=== PATIENT | male | born 1940 | race Asian ===

== ENCOUNTER 2016-11-23 07:51 | Emergency (ER) | payer MEDICARE, BC ==
[~2016-11-23] VITALS: Ht 157.5 cm; Wt 61.2 kg
[2016-11-23 08:15] VITALS: BP 129/63
[2016-11-23] MEDS ORDERED: Dicyclomine HCl 10mg/5ml oral soln ORAL ONE ×2 (08:15→09:30)
[2016-11-23] MEDS ORDERED: Morphine Sulfate 4mg/ml Inj IVP ONE (08:15)
[2016-11-23] MEDS ORDERED: Lidocaine 2% Visc 15ml soln ORAL ONE ×2 (08:15→09:30)
[2016-11-23] MEDS ORDERED: Mylanta II UD 30ml ORAL ONE ×2 (08:15→09:30)
--- NOTE | 2016-11-23 08:19 | Emergency Room Report ---
History of Present Illness General Chief Complaint: Abdominal Pain Source: Patient Present Illness HPI 76-year-old male with hyperlipidemia p/w abdominal pain 3-4 hours. Patient states pain started for he drink his medicine, localized to epigastric area, non radiating, burning in nature, intermittent. No relieving or exacerbating factors. Severity is 8/10. Denies nvd. Denies fever, chills. Denies chest pain or shortness of breath No hx of abdominal surgeries. No hx of endoscopies/colonoscopies. Patient states that he went to the emergency room at [facility] last week for right lower cautioned abdominal pain, was found to have a right-sided kidney stone which had passed, patient states that this pain is very different from his kidney stone pain Allergies: Coded Allergies: No Known Allergies (Unverified , 11/23/16) Patient History Past Medical History: see triage record Past Surgical History: none Pertinent Family History: none Reviewed Nursing Documentation: PMH: Agreed, PSxH: Agreed Nursing Documentation-PMH Past Medical History: No History, Except For Review of Systems All Other Systems: negative except mentioned in HPI Physical Exam Vital Signs Date Time Temp Pulse Resp B/P (MAP) Pulse Ox O2 Delivery O2 Flow Rate FiO2 11/23/16 07:54 97.7 72 20 133/74 97 Room Air Sp02 EP Interpretation: reviewed, normal General Appearance: alert, GCS 15, non-toxic, moderate distress Head: normocephalic, atraumatic Eyes: bilateral eye normal inspection, bilateral eye PERRL, bilateral eye EOMI ENT: normal ENT inspection, normal pharynx, normal voice, moist mucus membranes Neck: normal inspection, full range of motion, supple Respiratory: normal inspection, lungs clear, normal breath sounds, no respiratory distress, no retraction, no wheezing, speaking full sentences, chest symmetrical Cardiovascular #1: normal inspection, regular rate, rhythm, no edema, normal capillary refill Cardiovascular #2: 2+ radial (R), 2+ radial (L) Gastrointestinal: soft, non-distended, no guarding, other - Epigastric tenderness, Hewitt sign negative, all other quadrants nontender to palpation Genitourinary: no CVA tenderness Musculoskeletal: normal inspection, back normal, normal range of motion, non- tender Neurologic: normal inspection, alert, oriented x3, responsive, motor strength/ tone normal, sensory intact, normal gait, speech normal Psychiatric: normal inspection, judgement/insight normal, memory normal Skin: normal inspection, normal color, no rash, warm/dry, well hydrated, normal turgor Medical Decision Making Diagnostic Impression: Primary Impression: Epigastric abdominal pain ER Course 76-year-old male with abdominal pain for one day Differential Diagnosis: Gastritis, gastroenteritis, cholecystitis, appendicitis, diverticulitis, SBO, mesenteric ischemia, cardiac, UTI/pyelo At this time abdomen is soft nontender with the exception of epigastrium, will hold CT for now. Plan: Basic labs, ua, ekg Pepcid, maalox, pain control, IVF ER course: EKG revealing ST elevation inferior leads, reciprocal depressions in 1 aVL, mild ST depression in V5. Aspirin 325 given Heparin bolus, morphine Contacted [facility] 8:20am for STEMI Discussion held with [facility] plans examiner, does not believe it to be STEMI retreieved old EKG from [facility] from Oct 2016, SAME morphology without changes. Patient is also feeling much better with meds repeat abd exam is soft, no rigidity repeat trop negative pt continues to feel better in ed Disposition: Patient was discharged to home. He was instructed to follow up with gastroenterology in one week. A prescription of Pepcid was given to patient. Patient cautioned to return to the emergency room if he is experiencing severe worsening pain, intractable nausea vomiting, chest pain or shortness of breath Please note that this Emergency Department Report was dictated using [employer] technology software, occasionally this can lead to erroneous entry secondary to interpretation by the dictation equipment Laboratory Tests Test 11/23/16 08:15 11/23/16 11:25 White Blood Count 15.1 K/UL (4.8-10.8) H Red Blood Count 4.83 M/UL (4.70-6.10) Hemoglobin 15.4 G/DL (14.2-18.0) Hematocrit 45.3 % (42.0-52.0) Mean Corpuscular Volume 94 FL (80-99) Mean Corpuscular Hemoglobin 31.8 PG (27.0-31.0) H Mean Corpuscular Hemoglobin Concent 33.9 G/DL (32.0-36.0) Red Cell Distribution Width 10.8 % (11.6-14.8) L Platelet Count 206 K/UL (150-450) Mean Platelet Volume 6.4 FL (6.5-10.1) L Neutrophils (%) (Auto) 84.4 % (45.0-75.0) H Lymphocytes (%) (Auto) 8.7 % (20.0-45.0) L Monocytes (%) (Auto) 6.7 % (1.0-10.0) Eosinophils (%) (Auto) 0.0 % (0.0-3.0) Basophils (%) (Auto) 0.3 % (0.0-2.0) Prothrombin Time 10.1 SEC (9.30-11.50) Prothrombin Time INR 1.0 (0.9-1.1) PTT 25 SEC (23-33) Sodium Level 133 MMOL/L (136-145) L Potassium Level 4.0 MMOL/L (3.5-5.1) Chloride Level 98 MMOL/L (98-107) Carbon Dioxide Level 27 MMOL/L (21-32) Anion Gap 8 (5-15) Blood Urea Nitrogen 16 mg/dL (7-18) Creatinine 1.2 MG/DL (0.55-1.30) Estimate Glomerular Filtration Rate mL/min (>60) Glucose Level 149 MG/DL (74-106) H Calcium Level 8.7 MG/DL (8.5-10.1) Total Bilirubin 1.7 MG/DL (0.2-1.0) H Direct Bilirubin 0.6 MG/DL (0.0-0.3) H Aspartate Amino Transferase (AST) 189 U/L (15-37) H Alanine Aminotransferase (ALT) 87 U/L (12-78) H Alkaline Phosphatase 72 U/L (46-116) Total Creatine Kinase 92 U/L (26-308) Creatine Kinase MB < 0.5 NG/ML (0.0-3.6) Creatine Kinase MB Relative Index Troponin I 0.018 ng/mL (0.000-0.056) 0.011 ng/mL (0.000-0.056) Pro-B-Type Natriuretic Peptide 284 (0-125) H Total Protein 7.2 G/DL (6.4-8.2) Albumin 3.5 G/DL (3.4-5.0) Globulin 3.7 g/dL Albumin/Globulin Ratio 0.9 (1.0-2.7) L Lipase 83 U/L (73-393) EKG Diagnostic Results Rate: normal Rhythm: NSR ST Segments: other - RBBB, VANESSA inferior leads, ST depression I and aVL, Q wave lead III Rhythm Strip Diag. Results EP Interpretation: yes Rate: 71 Rhythm: NSR, no PVC's, no ectopy Last Vital Signs Date Time Temp Pulse Resp B/P (MAP) Pulse Ox O2 Delivery O2 Flow Rate FiO2 11/23/16 07:54 97.7 72 20 133/74 97 Room Air Disposition: HOME, SELF-CARE Condition: Improved Scripts Famotidine (PEPCID) 40 Mg Tablet 40 MG PO DAILY for 7 Days, #7 TAB 0 Refills Prov: Martha Rodgers M.D. 11/23/16 Martha Rodgers M.D. Nov 23, 2016 08:19
[2016-11-23] MEDS ORDERED: Heparin 5000 units/ml inj IV ONE (08:30)
[2016-11-23 08:45] LABS: BASOPHILS % (AUTO) 0.3 % (0.0-2.0); LYMPHOCYTES % (AUTO) 8.7 % (20.0-45.0); MEAN CORPUSCULAR HEMOGLOBIN 31.8 PG (27.0-31.0); MEAN CORPUSCULAR HGB CONC 33.9 G/DL (32.0-36.0); MEAN CORPUSCULAR VOLUME 94 FL (80-99); MEAN PLATELET VOLUME 6.4 FL (6.5-10.1); MONOCYTES % (AUTO) 6.7 % (1.0-10.0); NEUTROPHILS % (AUTO) 84.4 % (45.0-75.0); PLATELET COUNT 206 K/UL (150-450); RED BLOOD COUNT 4.83 M/UL (4.70-6.10); RED CELL DISTRIBUTION WIDTH 10.8 % (11.6-14.8); WHITE BLOOD COUNT 15.1 K/UL (4.8-10.8)
[2016-11-23] MEDS ORDERED: DOXAZOSIN MESYLA4 MG ORAL (08:45)
[2016-11-23] MEDS ORDERED: PROSCAR5 MG ORAL (08:45)
[2016-11-23] MEDS ORDERED: SIMVASTATIN10 MG ORAL (08:45)
[2016-11-23 08:46] VITALS: BP 123/59
[2016-11-23 08:56] LABS: ALANINE AMINOTRANSFERASE 87 U/L (12-78); ALBUMIN/GLOBULIN RATIO 0.9 (1.0-2.7); ANION GAP 8 (5-15); ASPARTATE AMINO TRANSFERASE 189 U/L (15-37); CALCIUM 8.7 MG/DL (8.5-10.1); CARBON DIOXIDE 27 MMOL/L (21-32); CHLORIDE 98 MMOL/L (98-107); CREATININE 1.2 MG/DL (0.55-1.30); LIPASE 83 U/L (73-393); SODIUM 133 MMOL/L (136-145); TOTAL PROTEIN 7.2 G/DL (6.4-8.2)
[2016-11-23 09:04] LABS: CKMB < 0.5 NG/ML (0.0-3.6)
[2016-11-23 09:07] LABS: PROTHROMBIN TIME 10.1 SEC (9.30-11.50)
[2016-11-23 09:44] LABS: BILIRUBIN,DIRECT 0.6 MG/DL (0.0-0.3)
[2016-11-23 10:23] VITALS: BP 115/59
[2016-11-23 11:16] VITALS: BP 110/54
[2016-11-23] MEDS ORDERED: PEPCID40 MG PO (11:19)
--- NOTE | 2016-11-23 12:01 | Diagnostic Imaging Report ---
Indication: PAIN, left-sided Chest pain Technique: One view of the chest Comparison: none Findings: There is some atelectasis at the right lung base and right perihilar region. The lungs and pleural spaces otherwise clear. Heart size is normal. Aorta is tortuous. Impression: Right basilar atelectasis No acute process otherwise
[2016-11-23 12:20] VITALS: BP 122/62
--- NOTE | 2016-12-06 14:01 | Cardiology Report ---
APPROVED REPORT EKG Measurement Heart [id number] Normal sinus rhythm Right bundle branch block Abnormal ECG
== END 2016-11-23 12:24 | disposition home or self-care (01) ==
LOC: EMR 08:32
DX: R10.13 Epigastric pain (principal); E78.5 Hyperlipidemia, unspecified; Z87.442 Personal history of urinary calculi; J98.11 Atelectasis; I45.10 Unspecified right bundle-branch block
CPT/HCPCS: 36415; 71010; 80053; 82248; 82550; 82553; 83690; 83880; 84484; 85025; 85610; 85730; 93005; 96374; 96375; 99284; J1644; J2270; S0028